=== PATIENT | female | born 1990 | race American Indian/Alaskan Native ===

== ENCOUNTER 2017-06-22 08:52 | Emergency (ER) | payer SELFPAY ==
[2017-06-22 09:30] VITALS: BP 111/70
--- NOTE | 2017-06-22 09:51 | Emergency Department Report ---
Chief Complaint: Urogenital-Female Stated Complaint: PELVIC PAIN Time Seen by Provider: 06/22/17 09:40 - [facility] History of Present Illness: 27-year-old female with no known past medical history presents with worsening, constant, throbbing, sharp lower pelvic pain right side greater than left times one week. Patient states the pain worsened this morning and it feels like her "uterus is bursting out'' of her stomach. Patient states she has a history of irregular cycles. Last menstrual cycle was 03/05/2017. She denies any trauma, vaginal bleeding, vaginal discharge, fever, nausea, vomiting, - ROS Review of Systems: As noted in HPI, denies all other symptoms - Exam Vital Signs: Vital Signs 06/22/17 09:25 Temperature 98.1 F Pulse Rate 59 L Respiratory 18 Rate Blood Pressure 111/70 O2 Sat by Pulse 100 Oximetry Physical Exam: GENERAL: Alert and oriented x3, no apparent distress, Normal Gait, atraumatic. HEAD: Head is normocephalic and a-traumatic. ABDOMEN: No organomegaly was noted,Positive bowel sounds, soft, and non- distended. . Nontender to palpation on all Quadrants, NO CVA tenderness. Low pelvic tenderness. SKIN: Warm and dry, No lesions, No ulceration or induration present. MSE screening note: Focused history and physical exam performed. Due to findings the following was ordered: ED Medical Decision Making - Lab Data Result diagrams: 06/22/17 10:02 06/22/17 10:02 - Medical Decision Making CBC, test ordered.. test positive plan ordered. OB ultrasound ordered. Tylenol for pain. Patient seen by fast track provider. Plan a care and OB referral if ultrasound normal - Differential Diagnosis 1. IUP 2. UTI 3. Pelvic pain 4. Ovarian cyst ED Disposition for MSE Condition: Stable
[2017-06-22 10:41] LABS: Basophils % (Auto) 1.3 % (0.0-1.8); Eosinophils % (Auto) 1.9 % (0.0-4.3); Hemoglobin 10.9 gm/dl (10.1-14.3); Mean Corpuscular HGB Conc 33 % (30-34); Mean Corpuscular Hemoglobin 27 pg (28-32); Mean Corpuscular Volume 82 fl (79-97); Platelet Count 279 K/mm3 (140-440); Red Blood Count 4.04 M/mm3 (3.65-5.03); Red Cell Distribution Width 16.7 % (13.2-15.2)
[2017-06-22 10:48] LABS: Alanine Aminotransferase 6 units/L (7-56); Albumin 3.9 g/dL (3.9-5); Albumin/Globulin Ratio 1.3 %; Alkaline Phosphatase 41 units/L (35-129); Anion Gap 22 mmol/L; BUN/Creatinine Ratio 17; Bilirubin,Total < 0.20 mg/dL (0.1-1.2); Blood Urea Nitrogen 12 mg/dL (7-17); Calcium 8.8 mg/dL (8.4-10.2); Carbon Dioxide 18 mmol/L (22-30); Chloride 102.2 mmol/L (98-107); Glucose 97 mg/dL (65-100); Lipase 90 units/L (13-60); Potassium 4.1 mmol/L (3.6-5.0); Sodium 138 mmol/L (137-145); Total Protein 6.8 g/dL (6.3-8.2)
[2017-06-22 10:48] LABS: Bacteria,Urine 1+ /HPF (Negative); Bilirubin,Urine NEG (Negative); Blood,Urine NEG (Negative); Ketones,Urine NEG (Negative); Leukocyte Esterase,Urine NEG (Negative); Nitrite,Urine NEG (Negative); Protein,Urine <15 mg/dL mg/dL (Negative); Urobilinogen,Urine < 2.0 mg/dL (<2.0); WBC,Urine < 1.0 /HPF (0.0-6.0)
[2017-06-22] MEDS ORDERED: TYLENOL PO ONE (10:48)
--- NOTE | 2017-06-22 12:09 | Ultrasound Report ---
ULTRASOUND OB LESS THAN 14 WEEKS FETUS ULTRASOUND OB TRANSVAGINAL HISTORY: Pelvic pain. COMPARISON: None. TECHNIQUE: Transabdominal and transvaginal ultrasound with color doppler interrogation. FINDINGS: Uterus: 9.3 x 5.6 x 6.8 cm. No uterine mass. Endometrium: An intrauterine gestational sac containing a small pole and yolk sac is identified. heart rate measures 165 beats per minute. Vinco-rump length measures 14.7 mm which correlates with a 7 week, 6 day . Estimated due date is 02/02/18. There is a moderate subchorionic hemorrhage along the right lateral border of the gestational sac. Right ovary: 3.0 x 1.8 x 1.9 cm. Left ovary: 3.6 x 1.9 x 1.9 cm. No pelvic fluid or mass is identified. Normal color doppler interrogation. IMPRESSION: Viable, single intrauterine dated at 7 weeks, 6 days. Moderate subchorionic hemorrhage.
--- NOTE | 2017-06-22 14:10 | Emergency Department Report ---
ED HPI - General Chief complaint: Urogenital-Female Stated complaint: PELVIC PAIN Time Seen by Provider: 06/22/17 09:40 Source: patient Mode of arrival: Ambulatory Limitations: No Limitations - History of Present Illness Initial comments: 27-year-old female past medical history marijuana abuse, bipolar disorder, depression presents with complaint of one month of pelvic discomfort. Patient states she has sensation of pelvic pressure. Has not had menstrual period in approximately 3 months. Patient states she has a history of irregular menstrual periods. Patient states that she has been slightly nauseous today and is not certain if she is . Patient denies any vaginal discharge or current vaginal bleeding. Patient has never been in the past. Patient has overwhelming odor of marijuana on clinical exam/interview. Patient is awake alert and oriented 3 cooperative and lucid. Denies dysuria or increased urinary frequency. Patient states pain is crampy in nature. Intermittent. Patient states she is moving her bowels and urinating normally. MD Complaint: abdominal pain Location: pelvis Severity: mild Quality: cramping Consistency: intermittent Improves with: none Worsens with: none Associated symptoms: denies other symptoms - Related Data Home Medications Medication Instructions Recorded Confirmed Last Taken lamoTRIgine [LaMICtal] 100 mg PO QDAY 07/31/16 07/31/16 07/30/16 Previous Rx's Medication Instructions Recorded Last Taken Type Ipratropium (Nf) [Atrovent HFA 2 puff IH Q6HR PRN #1 inha 11/22/13 07/30/16 Rx 17MCG/PUFF] Ipratropium [Atrovent] 0.5 mg IH Q6H PRN #25 neb 11/22/13 07/30/16 Rx predniSONE [Deltasone] 20 mg PO TID #15 tab 11/22/13 Unknown Rx ALBUTEROL Inhaler [ProAir HFA 2 puff IH QID PRN #1 inhalation 04/01/14 07/30/16 Rx Inhaler] predniSONE [Deltasone] 5 mg PO .TAPER #21 tab 04/01/14 Unknown Rx Diazepam Tab [Valium] 2 mg PO TID PRN #12 tablet 07/31/16 Unknown Rx Doxylamine Succinate/Vit B6 1 each PO QHS PRN #20 tablet. 06/22/17 Unknown Rx [Lucius Bland 10-10 mg Tablet] Mary Root [Mary] 250 mg PO TID PRN #1 bottle 06/22/17 Unknown Rx Ondansetron [Zofran Odt] 4 mg PO Q8H PRN #12 tab.rapdis 06/22/17 Unknown Rx Allergies Allergy/AdvReac Type Severity Reaction Status Date / Time latex Allergy Rash Verified 11/22/13 01:32 pineapple Allergy Itching Verified 07/30/16 23:15 ED Review of Systems ROS: Stated complaint: PELVIC PAIN Other details as noted in HPI Constitutional: denies: chills, fever Eyes: denies: eye pain, eye discharge, vision change ENT: denies: ear pain, throat pain Respiratory: denies: cough, shortness of breath, wheezing Cardiovascular: denies: chest pain, palpitations Endocrine: no symptoms reported Gastrointestinal: denies: abdominal pain, nausea, diarrhea Genitourinary: as per HPI (irregular menstrual periods), abnormal menses. denies: urgency, dysuria, discharge Musculoskeletal: denies: back pain, joint swelling, arthralgia Skin: denies: rash, lesions Neurological: denies: headache, weakness, paresthesias Psychiatric: denies: anxiety, depression Hematological/Lymphatic: denies: easy bleeding, easy bruising ED Past Medical Hx - Past Medical History Previous Medical History?: Yes Hx Psychiatric Treatment: Yes (Bipolar depression, Anxiety) Hx Asthma: Yes Additional medical history: eczema, anxiety - Surgical History Past Surgical History?: Yes Additional Surgical History: T&A - Social History Smoking Status: Current Every Day Smoker Substance Use Type: Alcohol, Marijuana, Prescribed - Medications Home Medications: Home Medications Medication Instructions Recorded Confirmed Last Taken Type Ipratropium (Nf) [Atrovent HFA 2 puff IH Q6HR PRN #1 inha 11/22/13 07/31/16 Rx 17MCG/PUFF] Ipratropium [Atrovent] 0.5 mg IH Q6H PRN #25 neb 11/22/13 07/31/16 07/30/16 Rx predniSONE [Deltasone] 20 mg PO TID #15 tab 11/22/13 07/31/16 Unknown Rx ALBUTEROL Inhaler [ProAir HFA 2 puff IH QID PRN #1 inhalation 04/01/14 07/31/16 07/30/16 Rx Inhaler] predniSONE [Deltasone] 5 mg PO .TAPER #21 tab 04/01/14 07/31/16 Unknown Rx Diazepam Tab [Valium] 2 mg PO TID PRN #12 tablet 07/31/16 Unknown Rx lamoTRIgine [LaMICtal] 100 mg PO QDAY 07/31/16 07/31/16 07/30/16 History Doxylamine Succinate/Vit B6 1 each PO QHS PRN #20 tablet. 06/22/17 Unknown Rx [Diclegis Dr 10-10 mg Tablet] Mary Root [Mary] 250 mg PO TID PRN #1 bottle 06/22/17 Unknown Rx Ondansetron [Zofran Odt] 4 mg PO Q8H PRN #12 tab.rapdis 06/22/17 Unknown Rx ED Physical Exam - General Limitations: No Limitations General appearance: alert, in no apparent distress - Head Head exam: Present: atraumatic, normocephalic - Eye Eye exam: Present: normal appearance, PERRL, EOMI - ENT ENT exam: Present: mucous membranes moist - Neck Neck exam: Present: normal inspection - Respiratory Respiratory exam: Present: normal lung sounds bilaterally. Absent: respiratory distress - Cardiovascular Cardiovascular Exam: Present: regular rate, normal rhythm. Absent: systolic murmur, diastolic murmur, rubs, gallop - GI/Abdominal GI/Abdominal exam: Present: soft (abdomen soft nontender nondistended 4 quadrants), normal bowel sounds - External exam: Present: normal external exam Speculum exam: Present: normal speculum exam Bi-manual exam: Present: normal bi-manual exam - Extremities Exam Extremities exam: Present: normal inspection - Back Exam Back exam: Present: normal inspection - Neurological Exam Neurological exam: Present: alert, oriented X3 - Psychiatric Psychiatric exam: Present: normal affect, normal mood - Skin Skin exam: Present: warm, dry, intact, normal color. Absent: rash ED Course Vital Signs 06/22/17 09:25 Temperature 98.1 F Pulse Rate 59 L Respiratory 18 Rate Blood Pressure 111/70 O2 Sat by Pulse 100 Oximetry ED Medical Decision Making - Lab Data Result diagrams: 06/22/17 10:02 06/22/17 10:02 - Medical Decision Making A/P: , marijuana abuse 1- I informed patient that she is currently . Approximately 7 weeks 6 days by ultrasound. Single live IUP with small subchorionic bleed. Patient has no clinical vaginal bleeding at this time. 2- patient referredto primary care and [facility]. Will start patient on vitamins 3- Diclegis when necessary for nausea, Mary when necessary for nausea, Zofran when necessary for nausea 4- patient is tolerating by mouth fluid and food without difficulty before discharge. Tylenol when necessary for crampy discomfort. Urinalysis shows no signs of infection. Critical care attestation.: If time is entered above; I have spent that time in minutes in the direct care of this critically ill patient, excluding procedure time. ED Disposition Clinical Impression: Qualifiers: Weeks of gestation: less than 8 weeks Qualified Code(s): Z3A.01 - Less than 8 weeks gestation of Nausea & vomiting Qualifiers: Vomiting type: unspecified Vomiting Intractability: non-intractable Qualified Code(s): R11.2 - Nausea with vomiting, unspecified Disposition: TO HOME OR SELFCARE Is pt being admited?: No Does the pt Need Aspirin: No Condition: Stable Instructions: (ED), Morning Sickness (ED), Effects of Smoking, Alcohol, and Drugs on (ED), Cannabis Abuse (ED) Prescriptions: Doxylamine Succinate/Vit B6 [Lucius Dr 10-10 mg Tablet] 1 each PO QHS PRN #20 tablet.dr PRN Reason: Nausea Mary Root [Mary] 250 mg PO TID PRN #1 bottle PRN Reason: Nausea Ondansetron [Zofran Odt] 4 mg PO Q8H PRN #12 tab.rapdis PRN Reason: Nausea Referrals: [facility] [Outside] - 3-5 Days [facility] [Provider Group] - 3-5 Days [facility] [Provider Group] - 3-5 Days [facility] [Provider Group] - 3-5 Days Forms: Work/School Release Form(ED) Time of Disposition: 15:43
[2017-06-22] MEDS ORDERED: ZOFRAN ODT PO ONE (14:45)
== END 2017-06-22 16:00 | disposition home or self-care (01) ==
LOC: ED 08:52
DX: O21.9 Vomiting of pregnancy, unspecified (principal); F17.200 Nicotine dependence, unspecified, uncomplicated; F12.10 Cannabis abuse, uncomplicated; Z91.040 Latex allergy status; Z91.018 Allergy to other foods; Z3A.01 Less than 8 weeks gestation of pregnancy
CPT/HCPCS: 36415; 76801; 76817; 80053; 81001; 83690; 84702; 84703; 85025; 99284; Q0162

== ENCOUNTER 2018-03-05 14:46 | Emergency (ER) | payer SELFPAY ==
[2018-03-05 15:29] LABS: Bilirubin,Urine NEG (Negative); Blood,Urine NEG (Negative); Color,Urine Yellow (Yellow); Mucus,Urine FEW /HPF; Protein,Urine <15 mg/dL mg/dL (Negative); Urobilinogen,Urine < 2.0 mg/dL (<2.0); WBC,Urine < 1.0 /HPF (0.0-6.0)
[2018-03-05 15:34] LABS: HCG Qualitative,Urine Positive (Negative)
--- NOTE | 2018-03-05 16:56 | Emergency Department Report ---
ED Female HPI - General Chief complaint: Vaginal Bleeding Stated complaint: POSS MISCARRIAGE Time Seen by Provider: 03/05/18 16:46 Source: patient Mode of arrival: Ambulatory Limitations: No Limitations - History of Present Illness Initial comments: Patient is 27 years old female 2 para 0. Patient stated that she had an in June 2017. She stated her last menstrual period In January. Patient presented to the ER complaining of vaginal spotting for the last 3-4 days. Patient also complaining of abdominal cramping. She stated that she possibly white tissue. Patient denied any fever, nausea or vomiting. MD Complaint: vaginal bleeding Severity: moderate - Related Data Home Medications Medication Instructions Recorded Confirmed Last Taken lamoTRIgine [LaMICtal] 100 mg PO QDAY 07/31/16 07/31/16 07/30/16 Previous Rx's Medication Instructions Recorded Last Taken Type Ipratropium (Nf) [Atrovent HFA 2 puff IH Q6HR PRN #1 inha 11/22/13 07/30/16 Rx 17MCG/PUFF] Ipratropium [Atrovent] 0.5 mg IH Q6H PRN #25 neb 11/22/13 07/30/16 Rx predniSONE [Deltasone] 20 mg PO TID #15 tab 11/22/13 Unknown Rx ALBUTEROL Inhaler (OR & NICU) 2 puff IH QID PRN #1 inhalation 04/01/14 07/30/16 Rx [ProAir HFA Inhaler] predniSONE [Deltasone] 5 mg PO .TAPER #21 tab 04/01/14 Unknown Rx diazePAM TAB [Valium] 2 mg PO TID PRN #12 tablet 07/31/16 Unknown Rx Doxylamine Succinate/Vit B6 1 each PO QHS PRN #20 tablet. 06/22/17 Unknown Rx [Lucius Bland 10-10 mg Tablet] Mary Root [Mary] 250 mg PO TID PRN #1 bottle 06/22/17 Unknown Rx Ondansetron [Zofran Odt] 4 mg PO Q8H PRN #12 tab.rapdis 06/22/17 Unknown Rx Pnv No.95/Ferrous Fum/Folic AC 1 each PO QDAY #30 tablet 06/22/17 Unknown Rx [ Formula Tablet] Allergies Allergy/AdvReac Type Severity Reaction Status Date / Time latex Allergy Rash Verified 03/05/18 15:08 pineapple Allergy Itching Verified 03/05/18 15:08 ED Review of Systems ROS: Stated complaint: POSS MISCARRIAGE Other details as noted in HPI Comment: All other systems reviewed and negative Constitutional: denies: chills, fever Respiratory: denies: cough, orthopnea, shortness of breath, SOB with exertion, wheezing Cardiovascular: denies: chest pain, palpitations Gastrointestinal: abdominal pain. denies: nausea, vomiting, diarrhea, constipation, hematemesis, hematochezia Neurological: denies: headache, weakness, numbness, paresthesias Psychiatric: denies: anxiety, depression ED Past Medical Hx - Past Medical History Hx Psychiatric Treatment: Yes (Bipolar depression, Anxiety) Hx Asthma: Yes Additional medical history: eczema, anxiety - Surgical History Additional Surgical History: T&A - Social History Smoking Status: Current Every Day Smoker Substance Use Type: Alcohol - Medications Home Medications: Home Medications Medication Instructions Recorded Confirmed Last Taken Type Ipratropium (Nf) [Atrovent HFA 2 puff IH Q6HR PRN #1 inha 11/22/13 07/31/16 Rx 17MCG/PUFF] Ipratropium [Atrovent] 0.5 mg IH Q6H PRN #25 neb 11/22/13 07/31/16 07/30/16 Rx predniSONE [Deltasone] 20 mg PO TID #15 tab 11/22/13 07/31/16 Unknown Rx ALBUTEROL Inhaler (OR & NICU) 2 puff IH QID PRN #1 inhalation 04/01/14 07/31/16 07/30/16 Rx [ProAir HFA Inhaler] predniSONE [Deltasone] 5 mg PO .TAPER #21 tab 04/01/14 07/31/16 Unknown Rx diazePAM TAB [Valium] 2 mg PO TID PRN #12 tablet 07/31/16 Unknown Rx lamoTRIgine [LaMICtal] 100 mg PO QDAY 07/31/16 07/31/16 07/30/16 History Doxylamine Succinate/Vit B6 1 each PO QHS PRN #20 tablet. 06/22/17 Unknown Rx [Lucius Bland 10-10 mg Tablet] Mary Root [Mary] 250 mg PO TID PRN #1 bottle 06/22/17 Unknown Rx Ondansetron [Zofran Odt] 4 mg PO Q8H PRN #12 tab.rapdis 06/22/17 Unknown Rx Pnv No.95/Ferrous Fum/Folic AC 1 each PO QDAY #30 tablet 06/22/17 Unknown Rx [ Formula Tablet] ED Physical Exam - General Limitations: No Limitations General appearance: alert, in no apparent distress - Head Head exam: Present: atraumatic, normocephalic, normal inspection - Eye Eye exam: Present: normal appearance - ENT ENT exam: Present: normal exam, normal orophraynx, mucous membranes moist - Neck Neck exam: Present: normal inspection, full ROM. Absent: tenderness, meningismus - Respiratory Respiratory exam: Present: normal lung sounds bilaterally - Cardiovascular Cardiovascular Exam: Present: regular rate, normal rhythm, normal heart sounds - GI/Abdominal GI/Abdominal exam: Present: soft, normal bowel sounds. Absent: distended, tenderness, guarding, rebound, rigid, mass, bruit, pulsatile mass, hernia - Extremities Exam Extremities exam: Present: normal inspection, full ROM, normal capillary refill. Absent: tenderness, pedal edema, joint swelling, calf tenderness - Neurological Exam Neurological exam: Present: alert, oriented X3, CN II-XII intact, normal gait, reflexes normal - Skin Skin exam: Present: warm, intact, normal color ED Course Vital Signs 03/05/18 03/05/18 15:08 19:28 Temperature 98.7 F Pulse Rate 66 Respiratory 16 18 Rate Blood Pressure 128/73 O2 Sat by Pulse 100 99 Oximetry ED Medical Decision Making - Lab Data Result diagrams: 03/05/18 17:16 03/05/18 17:16 - Radiology Data Radiology results: report reviewed Referring Physician: CISCO HORVATH Patient Name: DELTA PAYNE Date of : 1990 Sex: Female Report Date: 2018-03-05 Report Status: Finalized Findings [facility] [address] [place] [address] Ultrasound Report Signed Patient: DELTA PAYNE MR#: [id number] : 1990 Acct:[id number] Age/Sex: 27 / F ADM Date: 03/05/18 Loc: ED Attending Dr: Ordering Physician: CISCO HORVATH Date of Service: 03/05/18 Procedure(s): US OB transvaginal Accession Number(s): [id number] cc: CISCO HORVATH FINAL REPORT EXAM: US OB TRANSVAGINAL HISTORY: ABDOMINAL PAIN COMPARISON: None available. TECHNIQUE: Several real-time grayscale and color Doppler images were obtained. Transabdominal and transvaginal exam. FINDINGS: The uterus measures 9.5 x 4.1 x 6.8 centimeters. Endometrial stripe measures 9 millimeters. No discrete uterine lesions. No IUP or adnexal masses. Right ovary measures 5.3 x 1.9 x 3.9 centimeters. The left ovary measures 2.7 x 2.2 x 1.6 centimeters. Normal follicles are present. Gross vascular flow to the ovaries. Trace fluid in the pelvis. IMPRESSION: No IUP or adnexal masses are demonstrated. Correlation with serial beta HCGs and followup exam is suggested. Normal physiologic changes of the ovaries. Transcribed By: LMA Dictated By: HOLLIE SAUL MD Electronically Authenticated By: HOLLIE SAUL MD Signed Date/Time: 03/05/181911 DD/ 11 TD/TT: 03/05/181911 Critical care attestation.: If time is entered above; I have spent that time in minutes in the direct care of this critically ill patient, excluding procedure time. ED Disposition Clinical Impression: Vaginal bleeding during Disposition: DC-01 TO HOME OR SELFCARE Is pt being admited?: No Condition: Stable Instructions: Spontaneous Miscarriage (ED) Referrals: PRIMARY CARE, [Primary Care Provider] - 3-5 Days
[2018-03-05 17:38] LABS: Basophils # (Auto) 0.1 K/mm3 (0.0-0.1); Basophils % (Auto) 1.2 % (0.0-1.8); Eosinophils # (Auto) 0.1 K/mm3 (0.0-0.4); Eosinophils % (Auto) 1.6 % (0.0-4.3); Hematocrit 35.7 % (30.3-42.9); Hemoglobin 11.5 gm/dl (10.1-14.3); Lymphocytes # (Auto) 2.9 K/mm3 (1.2-5.4); Lymphocytes % (Auto) 38.4 % (13.4-35.0); Mean Corpuscular HGB Conc 32 % (30-34); Mean Corpuscular Hemoglobin 28 pg (28-32); Mean Corpuscular Volume 86 fl (79-97); Monocytes # (Auto) 0.6 K/mm3 (0.0-0.8); Platelet Count 324 K/mm3 (140-440); Red Blood Count 4.13 M/mm3 (3.65-5.03)
[2018-03-05 17:59] LABS: BUN/Creatinine Ratio 13; Blood Urea Nitrogen 12 mg/dL (7-17); Calcium 9.1 mg/dL (8.4-10.2); Hemolysis Index 4
--- NOTE | 2018-03-05 19:13 | Ultrasound Report ---
FINAL REPORT EXAM: US OB < = 14 WEEKS FETUS HISTORY: abdominal pain, vaginal bleeding COMPARISON: None available. TECHNIQUE: Several real-time grayscale and color Doppler images were obtained. Transabdominal and transvaginal exam. FINDINGS: The uterus measures 9.5 x 4.1 x 6.8 centimeters. Endometrial stripe measures 9 millimeters. No discrete uterine lesions. No IUP or adnexal masses. Right ovary measures 5.3 x 1.9 x 3.9 centimeters. The left ovary measures 2.7 x 2.2 x 1.6 centimeters. Normal follicles are present. Gross vascular flow to the ovaries. Trace fluid in the pelvis. IMPRESSION: No IUP or adnexal masses are demonstrated. Correlation with serial beta HCGs and followup exam is suggested. Normal physiologic changes of the ovaries.
--- NOTE | 2018-03-05 19:13 | Ultrasound Report ---
FINAL REPORT EXAM: US OB TRANSVAGINAL HISTORY: ABDOMINAL PAIN COMPARISON: None available. TECHNIQUE: Several real-time grayscale and color Doppler images were obtained. Transabdominal and transvaginal exam. FINDINGS: The uterus measures 9.5 x 4.1 x 6.8 centimeters. Endometrial stripe measures 9 millimeters. No discrete uterine lesions. No IUP or adnexal masses. Right ovary measures 5.3 x 1.9 x 3.9 centimeters. The left ovary measures 2.7 x 2.2 x 1.6 centimeters. Normal follicles are present. Gross vascular flow to the ovaries. Trace fluid in the pelvis. IMPRESSION: No IUP or adnexal masses are demonstrated. Correlation with serial beta HCGs and followup exam is suggested. Normal physiologic changes of the ovaries.
[2018-03-05 19:54] VITALS: BP 130/70
== END 2018-03-05 19:59 | disposition home or self-care (01) ==
LOC: ED 14:46
DX: O46.91 Antepartum hemorrhage, unspecified, first trimester (principal); Z3A.01 Less than 8 weeks gestation of pregnancy; J45.909 Unspecified asthma, uncomplicated; F41.9 Anxiety disorder, unspecified; F31.9 Bipolar disorder, unspecified; F17.200 Nicotine dependence, unspecified, uncomplicated; Z91.040 Latex allergy status; Z91.018 Allergy to other foods; Z79.899 Other long term (current) drug therapy
CPT/HCPCS: 36415; 76801; 76817; 80048; 81001; 81025; 84702; 85025; 86900; 86901